=== PATIENT | male | born 1990 | race African-American/Black ===

== ENCOUNTER 2020-08-21 08:40 | Emergency (ER) | payer MEDICAID, OTHER ==
[~2020-08-21] VITALS: Ht 190.5 cm; Wt 90.9 kg
[2020-08-21] MEDS ORDERED: LEVE250T55 PO (08:44)
[2020-08-21] MEDS ORDERED: METHOCARBAMOL 500 MG TABLET PO ONE (09:15)
[2020-08-21] MEDS ORDERED: KETOROLAC TROMETHAMINE 60 MG/2 ML VIAL IM ONE (09:15)
[2020-08-21 09:55] VITALS: BP 120/89
== END 2020-08-21 10:31 | disposition home or self-care (01) ==
LOC: EMS 08:46
DX: S39.012A Strain of muscle, fascia and tendon of lower back, initial encounter (principal); X50.0XXA Overexertion from strenuous movement or load, initial encounter; Y93.89 Activity, other specified; Y92.89 Other specified places as the place of occurrence of the external cause; Y99.0 Civilian activity done for income or pay
CPT/HCPCS: 96372; 99283; J1885